=== PATIENT | male | born 1960 | race Caucasian/White ===

== ENCOUNTER 2023-11-02 12:12 | Emergency (ER) | payer OTHER ==
[~2023-11-02] VITALS: Ht 185.4 cm; Wt 103.6 kg
[2023-11-02] VITALS (10 sets, daily range): BP systolic 124–158; BP diastolic 83–101
[2023-11-02] MEDS ORDERED: LOPRESSOR25 M1 PO (12:30)
[2023-11-02] MEDS ORDERED: METHOCARBAMOL 500 MG/TAB PO ONE (12:50)
[2023-11-02] MEDS ORDERED: KETOROLAC TROMETHAMINE 30 MG/ML SDV IM ONE (12:50)
[2023-11-02] MEDS ORDERED: HYDROcodone 5 MG/Acetaminophen 325 MG/COMBO PO ONE (12:50)
[2023-11-02] MEDS ORDERED: ORPHENADRINE CITRATE 30 MG/ML AMP IM ONE (12:55)
[2023-11-02] MEDS ORDERED: METHOCARBAMOL500 MG PO (14:14)
[2023-11-02] MEDS ORDERED: NAPROXEN500 MG PO (14:14)
== END 2023-11-02 14:50 | disposition home or self-care (01) | DRG 204 ==
LOC: ED 12:12
DX: R07.81 Pleurodynia (principal); I10 Essential (primary) hypertension